=== PATIENT | female | born 1970 ===

== ENCOUNTER 2017-09-11 01:29 | Emergency (ER) | payer OTHER ==
[2017-09-11] MEDS ORDERED: Sodium Chloride 0.9% 500 ML IV ONE (02:21)
[2017-09-11] MEDS ORDERED: Sodium Chloride 0.9% 1,000 ML ONE (02:36)
[2017-09-11 02:43] LABS: BASO % 0.5 % (0.0-2.0); EOS # 0.1 K/uL (0.0-0.7); EOS % 0.9 % (0.0-4.0); HEMOGLOBIN 13.5 g/dL (11.0-16.0); LYMPH # 1.4 K/uL (1.0-4.3); LYMPH % 21.4 % (20.0-40.0); MEAN CORPUSCULAR HEMOGLOBIN 22.6 pg (27.0-31.0); MEAN CORPUSCULAR HGB CONC 32.5 g/dL (33.0-37.0); MEAN PLATELET VOLUME 8.8 fL (7.2-11.7); MONO # 0.4 K/uL (0.0-0.8); MONO % 5.6 % (0.0-10.0); NEUT # 4.8 K/uL (1.8-7.0); NEUT % 71.6 % (50.0-75.0); NRBC % 0.1 % (0.0-2.0); RBC 5.99 Mil/uL (3.80-5.20); WHITE BLOOD COUNT 6.7 K/uL (4.8-10.8)
[2017-09-11 03:01] LABS: ALB/GLOB RATIO 1.4 (1.0-2.1); ALBUMIN 4.5 g/dL (3.5-5.0); ALT/SGPT 20 U/L (9-52); AST/SGOT 32 U/L (14-36); BLOOD UREA NITROGEN 7 mg/dL (7-17); CALCIUM 8.3 mg/dl (8.6-10.4); GFR AFRICAN-AMERICAN > 60; GFR NON-AFRICAN AMERICAN > 60; LIPASE 52 U/L (23-300)
[2017-09-11 04:05] LABS: HCG,QUALITATIVE URINE NEGATIVE (NEGATIVE)
[2017-09-11 04:08] LABS: SQUAMOUS EPITHIAL 5 /hpf (0-5); URINE BACTERIA RARE (<OCC); URINE BILIRUBIN NEGATIVE (NEGATIVE); URINE BLOOD 1+ (NEGATIVE); URINE CLARITY Clear (Clear); URINE COLOR Yellow (YELLOW); URINE GLUCOSE (UA) 1+ mg/dL (Normal); URINE LEUKOCYTE ESTERASE NEG Leu/uL (Negative); URINE PROTEIN NEGATIVE (NEGATIVE); URINE UROBILINOGEN NORMAL mg/dL (0.2-1.0)
--- NOTE | 2017-09-11 04:11 | C.PDOC ---
History Of Present Illness 46 year old female presents to the ER with a complaint of abdominal pain since yesterday afternoon, associated with vomiting, diarrhea, headache, and generalized body aches. Denies fever, sick contact, or recent travel. Time Seen by Provider: 09/11/17 02:00 Chief Complaint (Nursing): Abdominal Pain History Per: Patient History/Exam Limitations: no limitations Onset/Duration Of Symptoms: Days Current Symptoms Are (Timing): Still Present Location Of Pain/Discomfort: Diffuse Radiation Of Pain To:: None Quality Of Discomfort: Unable To Describe Associated Symptoms: Vomiting, Diarrhea, Other (Generalized body aches, headache ). denies: Fever Exacerbating Factors: None Alleviating Factors: None Recent travel outside of the [place]: No Abnormal Vaginal Bleeding: No Past Medical History Reviewed: Historical Data, Nursing Documentation, Vital Signs Vital Signs: Last Vital Signs Temp 98 F 09/11/17 01:37 Pulse 77 09/11/17 01:37 Resp 20 09/11/17 01:37 BP 138/84 09/11/17 01:37 Pulse Ox 95 09/11/17 04:18 Surgical History: No Surg Hx Family History: States: Unknown Family Hx - Social History Hx Alcohol Use: No Hx Substance Use: No Review Of Systems Constitutional: Negative for: Fever, Chills Respiratory: Negative for: Cough Gastrointestinal: Positive for: Vomiting, Abdominal Pain, Diarrhea Musculoskeletal: Positive for: Other (Generalized body aches) Neurological: Positive for: Headache Physical Exam - Physical Exam Appears: Non-toxic Skin: Normal Color, Warm, Dry Head: Atraumatic, Normacephalic Eye(s): bilateral: Normal Inspection Oral Mucosa: Moist Neck: Normal, Supple Chest: Symmetrical, No Tenderness Cardiovascular: Rhythm Regular Respiratory: Normal Breath Sounds, No Rales, No Rhonchi Gastrointestinal/Abdominal: Soft, Tenderness (Diffuse), No Guarding, No Rebound Back: No CVA Tenderness Neurological/Psych: Oriented x3, Normal Speech ED Course And Treatment - Laboratory Results Result Diagrams: 09/11/17 02:26 09/11/17 02:26 O2 Sat by Pulse Oximetry: 95 (room air) Pulse Ox Interpretation: Normal Progress Note: Blood work and urinalysis ordered. Reglan, toradol, and IV fluids administered. On reevaluation, patient is resting comfortably in the ER in no acute distress, afebrile, tolerating PO, vitals are stable, will discharge home with Rx and instructions to follow up with PMD or return if symptoms worsen. Disposition Counseled Patient/Family Regarding: Diagnosis, Need For Followup, Rx Given - Disposition Referrals: [facility] [Outside] Disposition: HOME/ ROUTINE Disposition Time: 05:04 Condition: STABLE Additional Instructions: Liquid diet ( Gatorade, sprite, ashish clare, jello, soup jesse) No comidas grandes, no leche or grasa Return to ER if worse Prescriptions: Ibuprofen [Motrin] 600 mg PO Q6H #30 tab Ondansetron [Zofran Odt] 4 mg PO BID #7 odt Instructions: Gastroenteritis (DC) Forms: [employer] (Bangladeshi), [employer] (Polish) - Clinical Impression Clinical Impression: Gastroenteritis - 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 - Scribe Statement The provider has reviewed the documentation as recorded by the Scribangy Dodd All medical record entries made by the Ernieibangy were at my direction and personally dictated by me. I have reviewed the chart and agree that the record accurately reflects my personal performance of the history, physical exam, medical decision making, and the department course for this patient. I have also personally directed, reviewed, and agree with the discharge instructions and disposition.
[2017-09-11 05:07] LABS: MEAN CELL VOLUME 69.3 fL (81.0-99.0)
[2017-09-11 05:28] VITALS: BP 120/80; PULSE 80; RESP 16; TEMP 97.9; O2SAT 99
== END 2017-09-11 05:28 | disposition home or self-care (01) ==
LOC: C.ER 01:29
DX: K52.9 Noninfective gastroenteritis and colitis, unspecified (principal)
CPT/HCPCS: 80053; 81001; 82948; 83690; 84703; 85025; 96374; 96375; 99284; J1885; J2765; J7040